=== PATIENT | female | born 1980 | race Two or more races ===

== ENCOUNTER 2024-12-30 08:08 | Outpatient (REF) | payer BC, SELFPAY | END 2024-12-30 23:59 | disposition home or self-care (01) | LOC: WOUND 08:08 | PROVIDERS: ATTENDING PHYSICIAN Surgery | DX: L97.212 Non-pressure chronic ulcer of right calf with fat layer exposed (principal) | CPT/HCPCS: 11042; 99203 ==

== ENCOUNTER 2025-01-05 11:06 | Outpatient (REF) | payer BC, SELFPAY | END 2025-01-05 23:59 | disposition home or self-care (01) | LOC: WOUND 11:06 | PROVIDERS: ATTENDING PHYSICIAN Surgery | DX: L97.212 Non-pressure chronic ulcer of right calf with fat layer exposed (principal) | CPT/HCPCS: 11042 ==

== ENCOUNTER 2025-01-16 11:19 | Outpatient (REF) | payer BC, SELFPAY | END 2025-01-16 23:59 | disposition home or self-care (01) | LOC: WOUND 11:19 | PROVIDERS: ATTENDING PHYSICIAN Registered Nurse | DX: L97.212 Non-pressure chronic ulcer of right calf with fat layer exposed (principal) | CPT/HCPCS: 97597 ==

== ENCOUNTER 2025-01-31 11:05 | Outpatient (REF) | payer BC, SELFPAY | END 2025-01-31 23:59 | disposition home or self-care (01) | LOC: WOUND 11:05 | PROVIDERS: ATTENDING PHYSICIAN Registered Nurse | DX: L97.212 Non-pressure chronic ulcer of right calf with fat layer exposed (principal) | CPT/HCPCS: 99213 ==